=== PATIENT | female | born 1970 | race Caucasian/White ===

== ENCOUNTER 2020-06-01 16:13 | Emergency (ER) | payer OTHER ==
[~2020-06-01] VITALS: Ht 177.8 cm; Wt 108.1 kg
[2020-06-01 16:16] VITALS: BP 150/76
[2020-06-01] MEDS ORDERED: KETOROLAC 30 MG/1 ML ONE (17:28)
--- NOTE | 2020-06-01 17:31 | NUR ---
PT MEDICATED PER MAR. NAD NOTED
[2020-06-01] MEDS ORDERED: KETOROLAC 30 MG/1 ML IM ONE (18:00)
== END 2020-06-01 18:54 | disposition home or self-care (01) ==
LOC: ED 16:45
DX: S16.1XXA Strain of muscle, fascia and tendon at neck level, initial encounter (principal); M62.838 Other muscle spasm; R51.9 Headache, unspecified; F17.200 Nicotine dependence, unspecified, uncomplicated; V49.09XA Driver injured in collision with other motor vehicles in nontraffic accident, initial encounter; Y93.89 Activity, other specified; Y92.488 Other paved roadways as the place of occurrence of the external cause; Y99.8 Other external cause status
CPT/HCPCS: 70450; 72072; 72110; 72125; 96372; 99285; J1885

== ENCOUNTER 2021-04-19 10:04 | Emergency (ER) | payer OTHER ==
[~2021-04-19] VITALS: Ht 177.8 cm; Wt 106.0 kg
--- NOTE | 2021-04-19 13:07 | NUR ---
PATIENT TO ROOM FROM LOBBY
[2021-04-19] MEDS ORDERED: FILTER 0.22 MICRON IV ONE (14:00)
[2021-04-19] MEDS ORDERED: ONDANSETRON 2MG/ML, 2ML IVPush ONE (14:00)
[2021-04-19] MEDS ORDERED: CASIRIVIMAB 600 MG, IMDEVIMAB (REGN10987) 600 MG in SODIUM CHLORIDE 0.9% 250 ML IVPB ONE (14:00)
[2021-04-19] MEDS ORDERED: SODIUM CHLORIDE FLUSH 10ML SYR IVF ONE (14:00)
--- NOTE | 2021-04-19 14:08 | NUR ---
MEAL TRAY PROVIDED PER ERP ORDER. 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 AWAITING REGENERON FROM PHARM.
[2021-04-19] MEDS ORDERED: ONDANSETRON 2MG/ML, 2ML ONE (14:14)
--- NOTE | 2021-04-19 14:31 | NUR ---
ZOFRAN GIVEN, REGENERON INFUSING. WARM BLANKET PROVIDED. CALL LIGHT WITHIN REACH.
--- NOTE | 2021-04-19 15:19 | NUR ---
PT SLEEPING WITH ARM BENT, INFUSION SLOW. WARM BLANKET PROVIDED. CONTINUE TO MONITOR INFUSION.
[2021-04-19 15:32] VITALS: BP 121/60
== END 2021-04-19 15:56 | disposition home or self-care (01) ==
LOC: ED 10:11
DX: U07.1 COVID-19 (principal); J45.909 Unspecified asthma, uncomplicated
CPT/HCPCS: 96374; 99283; J2405; M0243